=== PATIENT | male | born 1955 | race African-American/Black ===

== ENCOUNTER 2016-11-19 08:05 | Day surgery (SDC) | payer OTHER ==
[2016-11-16 12:02] VITALS: BMI 32.4
[~2016-11-19 08:05] MED LIST: LIDOCAINE 1% 20 ML VIAL (10MG/ML) FOR IV START INTRADERMA PRN
[2016-11-19 08:26] VITALS: TEMP 97.7
[2016-11-19] MEDS: LACTATED RINGERS 1,000 ML IV SCH ×2 (08:38→09:20)
[2016-11-19 08:53] LABS: Glucose,Whole Blood 118 mg/dL (75-99)
[2016-11-19] MEDS ORDERED: LIDOCAINE 1% INJ 10MG/ML (20 ML MDV) ONE (09:22)
[2016-11-19] MEDS ORDERED: PROPOFOL 10 MG/ML 20 ML VIAL IV ONE (09:22)
--- NOTE | 2016-11-19 10:03 | P.PCN ---
Date of Procedure: 11/19/16 Preoperative Diagnosis: Postoperative Diagnosis: Procedure(s) Performed: Procedure: Esophagogastroduodenoscopy and biopsy and esophageal dilation using the Microvasive lyxpfhh-fey-ljzym balloon dilator size 15-18 mm. Preoperative diagnosis: History of dysphagia including episodes of obstructive dysphagia with requirement of endoscopic intervention back in December 2015. Postoperative diagnosis: 1. Benign appearing esophageal stricture dilated to 18 mm using the Microvasive xuarwzz-wlk-atkhy balloon dilator size 15-18 mm. 2. Hiatal hernia. 3. Mild gastritis. Preparation and sedation: Was provided by anesthesia. Brief clinical history: The patient is a 61-year-old male who I have recently evaluated in the office and scheduled for this exam. The patient has had issues with dysphagia for the last 5 years, including episodes of obstruction that would either spontaneously resolve or would resolve after receiving glucagon in the hospital. His episode in December of last year required endoscopic intervention where I removed the impacted piece of meat using the snare. The patient continues to have issues and, therefore, I scheduled this evaluation for dilation and biopsies. Procedure: With the patient on his left lateral decubitus position and after informed consent and adequate sedation, I passed the Olympus-GIF 160 video upper endoscope through the cricopharyngeus down the esophagus. GE junction was around 42-43 cm from the incisors and there was a sliding hiatal hernia measuring around 2 cm. At the level of the GE junction there was a benign stricture that allows the advancement of the endoscope. The esophagus, otherwise, did not show any obvious abnormalities. The endoscope was then passed into the stomach which was insufflated with air and inspected in detail including the retroflex view in the cardia. There was some mottling and erythema in the antrum but no ulcers or erosions. Pyloric channel did not show any ulcers. Duodenal bulb, post bulbar area and descending duodenum appeared within normal limits. Because of his symptoms, I obtained biopsies from the duodenum and antrum then I proceeded to dilate the esophagus, and I concluded the exam by obtaining biopsies from the esophagus. The esophagus was dilated using the Microvasive xgykacv-mqt-betff balloon dilator 15-18 mm which was advanced through the operating channel of the endoscope and centered at the level of the stricture and inflated in a stepwise fashion. The patient had no immediate complications. Plan: The patient was reassured. Will await biopsy results. He will be on liquid diet today and then he can advance his diet as tolerated. Further plans will be made based on his course. He will follow up with you as planned. Implants: Indications for Procedure: Operative Findings: Description of Procedure:
[2016-11-19 10:15] VITALS: BP 126/72; PULSE 69; RESP 18
[2016-11-19 10:23] LABS: Glucose,Whole Blood 116 mg/dL (75-99)
== END 2016-11-19 10:37 | disposition home or self-care (01) ==
LOC: ORWHC2ENDO 08:05
DX: K22.2 Esophageal obstruction (principal); K29.50 Unspecified chronic gastritis without bleeding; K20.9 Esophagitis, unspecified; K44.9 Diaphragmatic hernia without obstruction or gangrene; E11.9 Type 2 diabetes mellitus without complications; I10 Essential (primary) hypertension; E78.5 Hyperlipidemia, unspecified; Z79.84 Long term (current) use of oral hypoglycemic drugs; Z79.1 Long term (current) use of non-steroidal anti-inflammatories (NSAID); Z79.899 Other long term (current) drug therapy
CPT/HCPCS: 88305; 88342; 43239; 43249; J2001; J2704; C1726

== ENCOUNTER 2017-04-05 14:06 | Emergency (ER) | payer BC, OTHER ==
[2017-04-05] MEDS ORDERED: SODIUM CHLORIDE 0.9% 1,000 ML IV ONE (15:06)
[2017-04-05] MEDS ORDERED: PROMETHAZ-COD 6.25-10 MG/5 ML 5 ML CUP PO STA (15:06)
[2017-04-05 15:42] LABS: Basophils % (A) 1 %; Eosinophils # (A) 0.2 k/uL (0-0.7); Eosinophils % (A) 3 %; HCT 46.2 % (39.0-53.0); HGB 15.1 gm/dL (13.0-17.5); Lymphocytes # (A) 1.8 k/uL (1.0-4.8); Lymphocytes % (A) 26 %; MCH 28.7 pg (25.0-35.0); MCHC 32.8 g/dL (31.0-37.0); MCV 87.6 fL (80.0-100.0); Monocytes # (A) 0.4 k/uL (0-1.0); Monocytes % (A) 6 %; Neutrophils # (A) 4.1 k/uL (1.3-7.7); Neutrophils % (A) 62 %; Platelet Count 209 k/uL (150-450); RBC 5.28 m/uL (4.30-5.90); RDW 14.5 % (11.5-15.5); WBC 6.7 k/uL (3.8-10.6)
--- NOTE | 2017-04-05 15:44 | XR ---
EXAMINATION TYPE: XR chest 2V DATE OF EXAM: 04/05/2017 COMPARISON: 12/30/2015 HISTORY: Cough and shortness of breath for one week TECHNIQUE: Frontal and lateral views of the chest are obtained. FINDINGS: There is no focal air space opacity, pleural effusion, or pneumothorax seen. The cardiac silhouette size is within normal limits. The osseous structures are intact. Cholecystectomy clip is noted within the right upper quadrant. IMPRESSION: No acute cardiopulmonary process.
[2017-04-05 15:52] LABS: Anion Gap 10 mmol/L; Blood Urea Nitrogen 12 mg/dL (9-20); Calcium 9.8 mg/dL (8.4-10.2); Carbon Dioxide 27 mmol/L (22-30); Chloride 102 mmol/L (98-107); Glucose 176 mg/dL (74-99); Potassium 4.3 mmol/L (3.5-5.1); Sodium 139 mmol/L (137-145)
--- NOTE | 2017-04-05 15:58 | ED ---
Recheck HPI - General Chief Complaint: Recheck/Abnormal Lab/Rx Stated Complaint: Sugar at 271 Time Seen by Provider: 04/05/17 14:55 Source: patient, RN notes reviewed, old records reviewed Mode of arrival: ambulatory Limitations: no limitations - History of Present Illness Initial Comments: This is a 61-year-old male with history of diabetes presents with upper respiratory congestion, cough, and chest discomfort for the past week. Patient reports he is concerning his blood sugars an elevated around 350-400 throughout the past week. Patient reports that he manages his diabetes with oral medications. He denies any fever or recent chills. He reports his cough has been nonproductive. He reports chest discomfort with cough. - Related Data Home Medications Medication Instructions Recorded Confirmed Atorvastatin [Lipitor] 20 mg PO W/SUPPER 12/30/15 04/05/17 Glimepiride [Amaryl] 2 mg PO W/SUPPER 12/30/15 04/05/17 Metoprolol Tartrate [Lopressor] 25 mg PO W/SUPPER 12/30/15 04/05/17 metFORMIN HCL 1,000 mg PO BID 12/30/15 04/05/17 Previous Rx's Medication Instructions Recorded Albuterol Inhaler [Ventolin Hfa 1 - 2 puff INHALATION Q6HR PRN #1 04/05/17 Inhaler] inhaler Azithromycin [Zithromax Z-pack] 250 mg PO DIRECTED #6 tab 04/05/17 Promethazine/Dextromethorphan 5 ml PO QID #120 ml 04/05/17 [Phenergan DM Syrup] Allergies Allergy/AdvReac Type Severity Reaction Status Date / Time No Known Allergies Allergy Verified 04/05/17 16:33 Review of Systems ROS Statement: Those systems with pertinent positive or pertinent negative responses have been documented in the HPI. ROS Other: All systems not noted in ROS Statement are negative. Past Medical History Past Medical History: Diabetes Mellitus, Hypertension Additional Past Medical History / Comment(s): STATES HAVING TROUBLE SWALLOWING- FOOD GETS STUCK. 11/20/16 BACTERIA INFECTION RT EYE History of Any Multi-Drug Resistant Organisms: None Reported Past Surgical History: Back Surgery, Cholecystectomy, Orthopedic Surgery Additional Past Surgical History / Comment(s): LEFT KNEE SURGERY X3. Past Anesthesia/Blood Transfusion Reactions: No Reported Reaction Past Psychological History: No Psychological Hx Reported Smoking Status: Never smoker Past Alcohol Use History: Occasional Past Drug Use History: None Reported - Past Family History Mother Family Medical History: No Reported History General Exam - General Exam Comments Initial Comments: This is a 61-year-old male. No distress. Limitations: no limitations General appearance: alert, in no apparent distress Head exam: Present: atraumatic, normocephalic, normal inspection Eye exam: Present: normal appearance, PERRL, EOMI. Absent: scleral icterus, conjunctival injection, periorbital swelling ENT exam: Present: normal exam, mucous membranes moist Neck exam: Present: normal inspection. Absent: tenderness, meningismus, lymphadenopathy Respiratory exam: Present: normal lung sounds bilaterally. Absent: respiratory distress, wheezes, rales, rhonchi, stridor Cardiovascular Exam: Present: regular rate, normal rhythm, normal heart sounds. Absent: systolic murmur, diastolic murmur, rubs, gallop, clicks GI/Abdominal exam: Present: soft, normal bowel sounds. Absent: distended, tenderness, guarding, rebound, rigid Extremities exam: Present: normal inspection, full ROM, normal capillary refill. Absent: tenderness, pedal edema, joint swelling, calf tenderness Back exam: Present: normal inspection Course Vital Signs 04/05/17 04/05/17 04/05/17 14:12 16:15 17:22 Temperature 98.8 F 98.4 F 98.9 F Pulse Rate 94 82 84 Respiratory 20 18 18 Rate Blood Pressure 133/73 123/69 130/74 O2 Sat by Pulse 98 98 100 Oximetry Medical Decision Making - Medical Decision Making This is a 61-year-old male with history of diabetes presents with upper respiratory congestion, cough, and chest discomfort for the past week. Patient reports he is concerning his blood sugars an elevated around 350-400 throughout the past week. Patient reports that he manages his diabetes with oral medications. Patient lungs are clear, patient is afebrile. Patient has no other significant ocmplaints. Patient lab work reviewed, BG was within normal limits. No significant abonralities noted. EKG reviwed and normal. CXR shows no pneumonia. At this time I will treat patient for bronchitis with inhaler and azithromycin. Disucssed steroids will increase BG. Discussed follow up with PCP and return parameters discussed. - Lab Data Result diagrams: 04/05/17 15:23 04/05/17 15:23 Lab Results 04/05/17 04/05/17 04/05/17 Range/Units 15:23 15:23 15:23 WBC 6.7 (3.8-10.6) k/uL RBC 5.28 (4.30-5.90) m/uL Hgb 15.1 (13.0-17.5) gm/dL Hct 46.2 (39.0-53.0) % MCV 87.6 (80.0-100.0) fL MCH 28.7 (25.0-35.0) pg MCHC 32.8 (31.0-37.0) g/dL RDW 14.5 (11.5-15.5) % Plt Count 209 (150-450) k/uL Neutrophils % 62 % Lymphocytes % 26 % Monocytes % 6 % Eosinophils % 3 % Basophils % 1 % Neutrophils # 4.1 (1.3-7.7) k/uL Lymphocytes # 1.8 (1.0-4.8) k/uL Monocytes # 0.4 (0-1.0) k/uL Eosinophils # 0.2 (0-0.7) k/uL Basophils # 0.0 (0-0.2) k/uL Sodium 139 (137-145) mmol/L Potassium 4.3 (3.5-5.1) mmol/L Chloride 102 (98-107) mmol/L Carbon Dioxide 27 (22-30) mmol/L Anion Gap 10 mmol/L BUN 12 (9-20) mg/dL Creatinine 0.96 (0.66-1.25) mg/dL Est GFR (MDRD) Af Amer >60 (>60 ml/min/1.73 sqM) Est GFR (MDRD) Non-Af >60 (>60 ml/min/1.73 sqM) Glucose 176 H (74-99) mg/dL Calcium 9.8 (8.4-10.2) mg/dL Troponin I <0.012 (0.000-0.034) ng/mL Urine Color Urine Appearance (Clear) Urine pH (5.0-8.0) Ur Specific [place] (1.001-1.035) Urine Protein (Negative) Urine Glucose (UA) (Negative) Urine Ketones (Negative) Urine Blood (Negative) Urine Nitrite (Negative) Urine Bilirubin (Negative) Urine Urobilinogen (<2.0) mg/dL Ur Leukocyte Esterase (Negative) Urine RBC (0-5) /hpf Urine WBC (0-5) /hpf Ur Squamous Epith Cells (0-4) /hpf Urine Mucus (None) /hpf Acetone, Qual Negative (Negative) 04/05/17 Range/Units 15:59 WBC (3.8-10.6) k/uL RBC (4.30-5.90) m/uL Hgb (13.0-17.5) gm/dL Hct (39.0-53.0) % MCV (80.0-100.0) fL MCH (25.0-35.0) pg MCHC (31.0-37.0) g/dL RDW (11.5-15.5) % Plt Count (150-450) k/uL Neutrophils % % Lymphocytes % % Monocytes % % Eosinophils % % Basophils % % Neutrophils # (1.3-7.7) k/uL Lymphocytes # (1.0-4.8) k/uL Monocytes # (0-1.0) k/uL Eosinophils # (0-0.7) k/uL Basophils # (0-0.2) k/uL Sodium (137-145) mmol/L Potassium (3.5-5.1) mmol/L Chloride (98-107) mmol/L Carbon Dioxide (22-30) mmol/L Anion Gap mmol/L BUN (9-20) mg/dL Creatinine (0.66-1.25) mg/dL Est GFR (MDRD) Af Amer (>60 ml/min/1.73 sqM) Est GFR (MDRD) Non-Af (>60 ml/min/1.73 sqM) Glucose (74-99) mg/dL Calcium (8.4-10.2) mg/dL Troponin I (0.000-0.034) ng/mL Urine Color Yellow Urine Appearance Clear (Clear) Urine pH 5.0 (5.0-8.0) Ur Specific [place] 1.018 (1.001-1.035) Urine Protein Trace H (Negative) Urine Glucose (UA) Trace H (Negative) Urine Ketones Negative (Negative) Urine Blood Trace H (Negative) Urine Nitrite Negative (Negative) Urine Bilirubin Negative (Negative) Urine Urobilinogen <2.0 (<2.0) mg/dL Ur Leukocyte Esterase Negative (Negative) Urine RBC 1 (0-5) /hpf Urine WBC 3 (0-5) /hpf Ur Squamous Epith Cells <1 (0-4) /hpf Urine Mucus Rare H (None) /hpf Acetone, Qual (Negative) 04/05/17 17:15 EKG shows normal sinus rhythm, incomplete right bundle branch block. Moderate voltage criteria for LVH. And sugar rate of 81 bpm period. Interval 132 ms. QRS ration 100 ms. QT QTc is 364/422 ms. Noticed this elevation or T-wave inversion. No evidence of a trailer ventricular arrhythmias. - Radiology Data Radiology results: report reviewed CXR reviewed and normal. Disposition Clinical Impression: Upper respiratory infection, Bronchitis Disposition: HOME SELF-CARE Condition: Good Instructions: Acute Bronchitis (ED), Managing Diabetes During Sick Days (ED) Additional Instructions: Advised to follow-up with primary care provider. Monitor blood sugars. Recommended increasing her fluid intake. Return to emergency department if any alarming signs or symptoms occur. Prescriptions: Albuterol Inhaler [Ventolin Hfa Inhaler] 1 - 2 puff INHALATION Q6HR PRN #1 inhaler PRN Reason: Pain Azithromycin [Zithromax Z-pack] 250 mg PO DIRECTED #6 tab Promethazine/Dextromethorphan [Phenergan DM Syrup] 5 ml PO QID #120 ml Referrals: Kyree Cruz Jr, DO [Primary Care Provider] - 1-2 days Time of Disposition: 17:03
[2017-04-05 16:10] LABS: Appearance,Urine Clear (Clear); Bilirubin,Urine Negative (Negative); Blood,Urine Trace (Negative); Color,Urine Yellow; Glucose,Urine (UA) Trace (Negative); Ketones,Urine Negative (Negative); Leukocyte Esterase,Urine Negative (Negative); Mucus,Urine Rare /hpf; Nitrite,Urine Negative (Negative); Protein,Urine Trace (Negative); RBC,Urine 1 /hpf (0-5); Specific Gravity,Urine 1.018 (1.001-1.035); Squamous Epithelial Cell,Urine <1 /hpf (0-4); Urobilinogen,Urine <2.0 mg/dL (<2.0); WBC,Urine 3 /hpf (0-5)
[2017-04-05 16:16] VITALS: RESP 18
[2017-04-05] MEDS ORDERED: methylPREDNISolone SOD SUCCI 125 MG/2 ML VIAL IV STA (17:08)
[2017-04-05 17:25] VITALS: BP 130/74; PULSE 84; TEMP 98.9
== END 2017-04-05 17:22 | disposition home or self-care (01) ==
LOC: EC 14:06
DX: J40 Bronchitis, not specified as acute or chronic (principal); J06.9 Acute upper respiratory infection, unspecified; I10 Essential (primary) hypertension; E11.9 Type 2 diabetes mellitus without complications; Z79.84 Long term (current) use of oral hypoglycemic drugs; Z79.899 Other long term (current) drug therapy
CPT/HCPCS: 99284; 96374; 96361 ×2; 36415; 93005; 80048; 82009; 84484; 85025; 81001; 71046; J2930

== ENCOUNTER → 2019-03-09 | Outpatient (CLI) | payer BC ==
[2019-03-09 07:53] LABS: HGB 14.4 gm/dL (13.0-17.5); MCH 30.7 pg (25.0-35.0); MCV 95.9 fL (80.0-100.0); Mean Platelet Volume 8.2; Platelet Count 218 k/uL (150-450); RBC 4.69 m/uL (4.30-5.90); RDW 13.8 % (11.5-15.5); WBC 5.5 k/uL (3.8-10.6)
[2019-03-09 08:03] LABS: Appearance,Urine Clear (Clear); Bilirubin,Urine Negative (Negative); Blood,Urine Negative (Negative); Calcium 9.5 mg/dL (8.4-10.2); Color,Urine Light Yellow; Glucose,Urine (UA) 4+ (Negative); Ketones,Urine Negative (Negative); Leukocyte Esterase,Urine Negative (Negative); Nitrite,Urine Negative (Negative); Potassium 4.4 mmol/L (3.5-5.1); Protein,Urine Negative (Negative); Specific Gravity,Urine 1.031 (1.001-1.035); Total Bilirubin 0.6 mg/dL (0.2-1.3); Total Protein 6.8 g/dL (6.3-8.2); Urobilinogen,Urine <2.0 mg/dL (<2.0)
[2019-03-09 08:06] LABS: INR 0.9 (<1.2); Partial Thromboplastin Time 24.6 sec (22.0-30.0); Prothrombin Time 9.7 sec (9.0-12.0)
== END | disposition home or self-care (01) ==
LOC: LABPAT 06:51
PROVIDERS: ATTEND Orthopaedic Surgery Sports Medicine
DX: Z01.810 Encounter for preprocedural cardiovascular examination (principal); Z01.812 Encounter for preprocedural laboratory examination
CPT/HCPCS: 36415; 80053; 81003; 85027; 85610; 85730; 87070; 93005

== ENCOUNTER → 2019-03-31 | Outpatient (CLI) | payer BC ==
[2019-03-31 07:21] LABS: Appearance,Urine Clear (Clear); Bilirubin,Urine Negative (Negative); Blood,Urine Negative (Negative); Color,Urine Yellow; Glucose,Urine (UA) 4+ (Negative); HCT 47.5 % (39.0-53.0); HGB 15.3 gm/dL (13.0-17.5); Ketones,Urine Negative (Negative); Leukocyte Esterase,Urine Negative (Negative); MCHC 32.3 g/dL (31.0-37.0); Mean Platelet Volume 8.3; Nitrite,Urine Negative (Negative); Platelet Count 239 k/uL (150-450); Protein,Urine Negative (Negative); RBC 4.94 m/uL (4.30-5.90); RDW 13.7 % (11.5-15.5); Specific Gravity,Urine 1.028 (1.001-1.035); Urobilinogen,Urine <2.0 mg/dL (<2.0); WBC 6.5 k/uL (3.8-10.6)
[2019-03-31 07:30] LABS: INR 0.9 (<1.2); Partial Thromboplastin Time 24.2 sec (22.0-30.0)
[2019-03-31 07:42] LABS: Calcium 9.7 mg/dL (8.4-10.2); Potassium 4.3 mmol/L (3.5-5.1); Total Bilirubin 0.9 mg/dL (0.2-1.3)
== END | disposition home or self-care (01) ==
LOC: LABPAT 06:34
PROVIDERS: ATTEND Orthopaedic Surgery Sports Medicine
DX: Z01.812 Encounter for preprocedural laboratory examination (principal)
CPT/HCPCS: 80053; 81003; 85027; 85610; 85730

== ENCOUNTER 2019-04-26 10:37 | Day surgery (SDC) | payer BC ==
[2019-04-18 11:23] VITALS: BMI 33.0
[~2019-04-26 10:37] MED LIST changes: +ACETAMINOPHEN TAB 500 MG TAB PO ONE; +DEXAMETHASONE SOD PHOSPHATE 10 MG/ML 1 ML VIAL IV ONE; +GABAPENTIN 300 MG CAP PO ONE; +MELOXICAM 7.5 MG TAB PO ONE; +MIDAZOLAM 2 MG/2 ML VIAL IV PRN; +ONDANSETRON 4 MG/2 ML VIAL IVP ONE; +TRANEXAMIC ACID 1,000 MG in SODIUM CHLORIDE 0.9% 100 ML IVPB ONE; +fentaNYL (PF) 50 MCG/ML 2 ML AMP IVP PRN
[2019-04-26 11:47] VITALS: RESP 16
[2019-04-26] MEDS: LACTATED RINGERS 1,000 ML IV SCH ×2 (11:49→15:49)
[2019-04-26 11:51] LABS: Glucose,Whole Blood 81 mg/dL (75-99)
[2019-04-26] MEDS ORDERED: ACETAMINOPHEN TAB 325 MG TAB PO PRN (12:17)
[2019-04-26] MEDS ORDERED: HYDROcodone/APAP 10-325MG 1 EACH TAB PO PRN (12:17)
[2019-04-26] MEDS ORDERED: HYDROmorphone 0.5 MG/0.5 ML SYRINGE IVP PRN ×2 (12:17)
[2019-04-26] MEDS ORDERED: NALOXONE 0.4 MG/ML 1 ML VIAL IV PRN (12:17)
[2019-04-26] MEDS ORDERED: traMADol 50 MG TAB PO PRN (12:17)
[2019-04-26] MEDS ORDERED: BISACODYL 10 MG SUPP RECTAL PRN (12:17)
[2019-04-26] MEDS ORDERED: NA PHOS,M-B/NA PHOS,DI-BA 133 ML ENEMA RECTAL PRN (12:17)
[2019-04-26] MEDS ORDERED: DIAZEPAM 5 MG TAB PO PRN (12:17)
[2019-04-26] MEDS ORDERED: MAGNESIUM HYDROXIDE 2,400 MG/10 ML CUP PO PRN (12:17)
[2019-04-26] MEDS ORDERED: TEMAZEPAM 15 MG CAP PO PRN (12:17)
[2019-04-26] MEDS ORDERED: ONDANSETRON 4 MG/2 ML VIAL IVP PRN (12:17)
[2019-04-26] MEDS ORDERED: HYDROmorphone 1 MG/ML 1 ML SYRINGE IVP PRN (12:17)
[2019-04-26] MEDS ORDERED: LIDOCAINE 1% INJ 10MG/ML (20 ML MDV) ONE (12:26)
[2019-04-26] MEDS ORDERED: PROPOFOL 10 MG/ML 20 ML VIAL IV ONE (12:26)
[2019-04-26] MEDS ORDERED: TRANEXAMIC ACID 1,000 MG/10 ML VIAL ONE (12:26)
[2019-04-26] MEDS ORDERED: SODIUM CHLORIDE 0.9% 100 ML BAG ONE (12:26)
[2019-04-26] MEDS ORDERED: MIDAZOLAM 2 MG/2 ML VIAL ONE (12:26)
[2019-04-26] MEDS ORDERED: fentaNYL (PF) 50 MCG/ML 2 ML AMP ONE (12:26)
[2019-04-26] MEDS ORDERED: KETAMINE 10 MG/ML 20 ML VIAL ONE (12:26)
[2019-04-26] MEDS ORDERED: ePHEDrine SULFATE/0.9% NACL/PF 50 MG/5 ML SYRINGE IV ONE (12:26)
[2019-04-26] MEDS ORDERED: diphenhydrAMINE 50 MG/ML 1 ML VIAL ONE (12:26)
[2019-04-26] MEDS ORDERED: ceFAZolin 3,000 MG in SODIUM CHLORIDE 0.9% IRRIGATIO 3,000 ML IRRIGATION ONE (13:00)
[2019-04-26] MEDS: ROPIVACAINE 246.25 MG, EPINEPHrine 0.5 MG, KETOROLAC 30 MG, cloNIDine HCL/PF 80 MCG, WA... MISCELLANE ONE ×10 (13:00→14:07)
[2019-04-26] MEDS ORDERED: LACTATED RINGERS 1,000 ML IV ONE (13:18)
[2019-04-26] MEDS ORDERED: ROPIVACAINE 0.2%-NS ON-Q PUMP 1,090 MG, EMPTY PAIN BALL 1 EACH MISCELLANE PRN (14:10)
--- NOTE | 2019-04-26 14:13 | P.ANPRN ---
Procedure Note - Anesthesia - Nerve Block Performed Left Adductor Canal Infusion Time Out Performed: Yes Date of Procedure: 04/26/19 Procedure Start Time: 12:01 Procedure Stop Time: 12:14 Location of Patient: PreOp Indication: Acute Post-Operative Pain, Requested by Surgeon Sedation Type: Sedate with meaningful contact maintained Preparation: Sterile Prep, Sterile Dressing Position: Supine Catheter: Indwelling Needle Types: Pajunk Needle Gauge: 21 Ultrasound used to visualize needle placement: Yes Ultrasound used to observe medication spread: Yes Blood Aspirated: No Pain Paresthesia on Injection Noted: No Resistance on Injection: Normal Image Stored and Saved: Yes Events: Uneventful and Well Tolerated (ropi .5% 20cc plus dexamethasone 4mg)
--- NOTE | 2019-04-26 15:20 | XR ---
Left knee HISTORY: Status post left knee arthroplasty 2 views of the left knee Patient is status post left knee arthroplasty. There is anatomic alignment. Lucency is present within the soft tissues. Calcifications within the soft tissues show nonaggressive appearance. IMPRESSION: Orthopedic follow-up.
[2019-04-26 15:23] LABS: Glucose,Whole Blood 90 mg/dL (75-99)
[2019-04-26] MEDS: HYDROmorphone 0.5 MG/0.5 ML SYRINGE IVP PRN ×2 (15:26→15:46)
--- NOTE | 2019-04-26 16:04 | OP ---
OPERATIVE REPORT DATE OF PROCEDURE: 04/26/2019 SURGEON: Bebeto Mota MD EXPLORATION GEOLOGIST: Carlitos Bojorquez PA-C PREOPERATIVE DIAGNOSIS: Left knee osteoarthrosis. POSTOPERATIVE DIAGNOSIS: Left knee osteoarthrosis. OPERATION: Left total knee arthroplasty. ANESTHESIA: Spinal with sedation. ESTIMATED BLOOD LOSS: 100 mL. TOURNIQUET: Tourniquet time was 72 minutes at 250 mmHg. COMPLICATIONS: None apparent. DRAINS: None. DISPOSITION: Post-Anesthesia Care Unit. INDICATIONS: Suhas is a 63-year-old male with a longstanding history of left knee pain. History and physical examination are consistent with advanced left knee osteoarthrosis. He has been through significant nonoperative management up to this point. Further treatment options were discussed. He decided to go forward with left total knee arthroplasty. The risks of the procedure were discussed with him in detail. These risks include but are not limited to risk of infection, nerve damage, bleeding, pain, and a small risk of deep vein thrombosis which could lead to fatal pulmonary embolism. There is also a risk of loosening of the implant which could require revision operation. The patient understands these risks. All of his questions were answered to his satisfaction. Appropriate informed consent was obtained. DESCRIPTION OF PROCEDURE: The patient was identified in the preoperative holding area. Surgical site was marked by both the patient and myself. He was given 2 grams of Ancef IV for prophylactic purposes. He was then transferred to the operative suite. He was placed supine on the operating room table. Spinal anesthetic was then administered and dosed per the anesthesia department without apparent complication. Examination under anesthesia was then performed. The patient was 5 degrees shy of full extension. He had 95 degrees of flexion, and the medial collateral ligament, lateral collateral ligament and posterior cruciate ligaments were stable. The tourniquet was then placed high on the left upper thigh, well padded in preparation for surgery. The patient's left lower extremity was then prepped and draped in the usual sterile fashion. A standard surgical pause was then undertaken to ensure that we were operating on the correct site and that appropriate preoperative antibiotics had been given. All staff in the room were in agreement and we proceeded. The outlines of the patella were marked with a surgical pen. A planned 12 cm vertical incision centered over the patella was marked with a surgical pen. He did have a previous arthrotomy incision. We did incorporate the medial arthrotomy incision into the incision for the case. The leg was then exsanguinated with an Esmarch dressing. The knee was flexed and the tourniquet was inflated to 250 mmHg. Total tourniquet time for this procedure was 72 minutes. Incision was then made with a 10-blade scalpel. Dissection was carried down sharply to the overlying fascia. Great care was taken to minimize the skin flaps. The knee was then exposed using a standard medial parapatellar approach. A small cuff of quadriceps tendon was then left for suturing. He was in a bit of valgus preoperatively. A very minimal medial release was then made. The superficial medial collateral ligament was dissected off the bone around to the posterior aspect of the proximal tibia. This was done just enough to place the medial retractor. The medial meniscus was then excised as well. The lateral meniscus was also released anteriorly. The leg was then externally rotated. The patella was everted and the knee was flexed. The retractors were then placed to protect the collateral ligaments. I then proceeded to remove the infrapatellar fat pad. This was excised sharply tangentially with the fibers of the patellar tendon. I then proceeded to remove the peripheral osteophytes. This was done with a rongeur. I then proceeded with the distal femoral resection. He did have a flexion contracture, and extra 2 mm resection was planned for. This would be an 11 mm resection in total. The femoral canal was then entered in the midline of the femur approximately 10 mm anterior to the origin of the posterior cruciate ligament. The meghan was then advanced down to the center of the femur and placed intramedullary. Based on the preoperative radiographs, the angle between the anatomic and mechanical axes of the femur was approximately 4 to 5 degrees. The valgus angle of the distal femoral cutting guide was then set at 4 degrees for the left knee. Distal femoral cutting guide was then advanced over the intramedullary meghan. This was seated firmly against the femur. I then, as mentioned, planned to take 11 mm off the distal femur. The cutting block was then secured onto the femur with pins. The jig was removed and the distal femoral cut was made through the slot of the block. The pins were then removed. The distal femoral cutting block was removed. The accuracy of the distal femoral cuts was checked with 2 flat bars. I then proceeded with femoral sizing. The posterior referencing sizing guide was held firmly against the resected distal surface of the femur. The posterior condyles were resting on the posterior plane of the guide. The sizing stylus was then placed onto the anterior femur. The size was measured as a size 9. I then assessed for femoral rotation. The plan was for 3 degrees of external rotation. Three degrees of external rotation was placed onto the jig. These holes were then marked. I then confirmed the rotation by 3 separate methods. This was done using epicondylar axis as well as Whitesides line and posterior referencing. It was deemed that the external rotation was proper. I then went forward with placing the femoral cutting block. This was placed over the previously placed pin holes. The Ernesto wing was then placed onto the anterior slots to ensure that we would not notch the anterior femur with the anterior femoral cut. I then proceeded with the anterior femoral cut. This was flush with the anterior cortex of the femur. Posterior cuts were then made followed by the anterior chamfer cut and then the posterior chamfer cut. The cutting block was then removed. Throughout the resection, the collateral ligaments were protected with retractors. I then placed a trial size 9 femur. It fit very nicely medial to lateral and fit flush with the distal end of the femur. The drill holes were then made. I then proceeded with the tibial cut. I planned for a cruciate-retaining knee. The guide was set and placed for varus, valgus and for slope. The height was set for an approximate 2 mm resection from the lateral tibial plateau, which was the lower side. I was happy with the alignment and the amount of resection. Cutting block was then pinned to the proximal tibia. The alignment meghan was removed and the proximal tibia was resected with a reciprocating saw. Again this was done with retractors protecting the collateral ligaments as well as the posterior cruciate ligament. I then proceeded to evaluate the flexion and extension gaps. A 10 mm block was then placed. The flexion and extension gaps were equal. I then proceeded with resection of the posterior osteophytes. He had very extensive posterior osteophytes. This was done using a curved osteotome. This resected the posterior osteophytes, and posterior capsule stripping was done off the posterior aspect of the femur at this time. The osteophytes were then removed. I then proceeded with resection of the patella. The thickness of the patella was measured using the caliper. The thickness was 26 mm. Thickness of the anticipated patellar dome was taken into account. Resection was then performed and confirmed to be equal in 4 quadrants using a caliper. Approximately 14 mm of bone remained after the resection. A 38 x 9 standard patellar trial was then placed. The holes were drilled and the trial was then placed. I then proceeded with sizing the tibial plate. A size H tibial plate fit very nicely. I then placed the trial femur, the tibial tray and the patellar button. A 10 mm trial insert was also placed. The components fit very nicely. He had full extension and flexion. The extension and flexion gaps were equal and stable to both varus and valgus stress. The patella tracked appropriately. The tibial tray rotation was then marked with a Bovie. This was externally rotated properly. I then proceeded with tibial preparation. I first drilled the femoral holes and removed the femoral component. The tibial tray was then set for proper external rotation as well as mediolateral placement onto the tibia. It was then pinned into place. I then proceeded with punching the keel. I then decided to proceed with cementing of all of our components. The knee was thoroughly irrigated with sterile saline solution via pulse lavage. The lateral geniculate artery was identified and cauterized. All blood was removed from the bone of the tibia, femur and patella with pulse lavage. I then proceeded with cementing. Two packs of antibiotic bone cement were prepared on the back table by the nursing surgical services director. I then proceeded with cementing of the tibia first. The cement was impacted into the keel as well as deeply seated into the bone. A second coat of cement was then placed. The tibia was then impacted into place. Excess cement was removed with Ira's and Joker's. I then proceeded with cementing of the femoral component. The femoral component was also cemented using standard technique. Excess cement was removed. A 10 mm trial insert was then placed into the knee. It was brought into full extension with a constant axial load placed until the cement had hardened. The patellar component was then cemented. This was held firmly with a compressive device until the cement had dried. When the cement had dried, the knee was taken out of extension. All excess cement was removed from around the prosthesis. I then trialed the knee with a 10 mm insert. Flexion and extension gaps were appropriate. The knee was stable. It came into full extension. I decided to go forward with a 10 mm cross-linked cruciate-retaining tibial insert. Polyethylene was then placed onto the tibial tray and locked into place. The knee was then reduced. The knee was again further irrigated with sterile saline solution with antibiotic added. The tourniquet was then deflated. The total tourniquet time for the procedure was 72 minutes at 250 mmHg. Final components were a [place] size 9 cruciate-retaining femoral component, a size H tibial tray, a 10 mm medial-congruent cruciate-retaining polyethylene insert, and a 38 x 9 mm patella. I then proceeded with closure. Again the knee was thoroughly irrigated. The quadriceps tendon and the medial retinaculum were reapproximated with a #2 Ethibond suture. The extensor mechanism was then closed with a running #2 Quill suture. Subcutaneous tissues were then closed with 2-0 Vicryl interrupted suture. The skin was closed with a running 3-0 Quill suture. Dermabond was applied to the incision. Sterile compressive dressing was then applied. All sponge and needle counts were deemed correct prior to closure. The patient tolerated the procedure without apparent complication. He was transferred to the recovery room in stable condition. MMODL / IJN: [id number] /
[2019-04-26 17:13] LABS: Glucose,Whole Blood 127 mg/dL (75-99)
[2019-04-26 20:30] LABS: Glucose,Whole Blood 169 mg/dL (75-99)
[2019-04-26] MEDS: ASPIRIN 325 MG TAB PO SCH (20:58)
[2019-04-26] MEDS: metFORMIN 500 MG TAB PO SCH (20:59)
[2019-04-26] MEDS ORDERED: EMPAGLIFLOZIN PO SCH (21:00)
[2019-04-26] MEDS ORDERED: LOSARTAN 25 MG TAB PO SCH (21:00)
[2019-04-26] MEDS ORDERED: SENNOSIDES-DOCUSATE SODIUM 1 EACH TAB PO SCH (21:00)
[2019-04-26] MEDS ORDERED: METOPROLOL TARTRATE 25 MG TAB PO SCH (21:00)
[2019-04-26] MEDS ORDERED: PIOGLITAZONE 30 MG TAB PO SCH (21:00)
[2019-04-26] MEDS ORDERED: LINAGLIPTIN PO SCH (21:00)
[2019-04-26] MEDS ORDERED: ATORVASTATIN 20 MG TAB PO SCH (21:00)
[2019-04-26] MEDS: HYDROcodone/APAP 5-325MG 1 EACH TAB PO PRN (21:08)
[2019-04-27] MEDS: LACTATED RINGERS 1,000 ML IV SCH ×3 (01:11→07:21)
--- NOTE | 2019-04-27 07:18 | P.PN ---
Progress Note - Text Progress Note Date: 04/27/19 Postoperative day # 1 status post total knee arthroplasty, under spinal anesthesia, and adductor canal catheter placed for postoperative analgesia, currently at ropivacaine 0.2% 8 mL per hour and continuous infusion, visual analogue scale is 0/10. Assessment and plan= Acute postoperative pain, adductor canal catheter for pain control, pain is well controlled we'll continue the same management.
[2019-04-27 07:21] LABS: Glucose,Whole Blood 154 mg/dL (75-99)
[2019-04-27 08:07] LABS: Basophils # (A) 0.1 k/uL (0-0.2); Basophils % (A) 1 %; Eosinophils % (A) 0 %; HCT 42.9 % (39.0-53.0); HGB 13.5 gm/dL (13.0-17.5); Lymphocytes % (A) 10 %; MCHC 31.5 g/dL (31.0-37.0); MCV 95.3 fL (80.0-100.0); Mean Platelet Volume 8.1; Monocytes # (A) 0.4 k/uL (0-1.0); Monocytes % (A) 5 %; Neutrophils # (A) 8.1 k/uL (1.3-7.7); Neutrophils % (A) 83 %; Platelet Count 214 k/uL (150-450); RDW 13.7 % (11.5-15.5); WBC 9.7 k/uL (3.8-10.6)
[2019-04-27 08:08] VITALS: BP 114/68; PULSE 79; TEMP 98
[2019-04-27] MEDS: ASPIRIN 325 MG TAB PO SCH (09:39)
[2019-04-27] MEDS: metFORMIN 500 MG TAB PO SCH (09:39)
--- NOTE | 2019-04-27 10:37 | P.DS ---
Providers Expected date of discharge: 04/27/19 Attending physician: Bebeto Mota Consults: 04/26/19 12:17 Consult Physician Routine Consulting Provider: Raulito Blake Consult Reason/Comments: post op medical management Do you want consulting provider notified?: Yes Primary care physician: Raulito Blake - Discharge Diagnosis(es) (1) Status post total left knee replacement Patient was admitted to the OR on 04/26/2019 to undergo a left total knee arthroplasty. He had failed conservative measures as an outpatient and desired to proceed with elective surgery after given informed consent. He underwent the above procedure which he tolerated well without complication. Postoperative hospital course has remained without complication. On day of discharge he is afebrile, vital signs stable, labs within acceptable ranges, tolerating by mouth meds and diet, voiding without difficulty, positive flatus, denies abdominal pain or calf pain, pain is controlled on oral pain medication and has no new complaints. Wound is benign, neurovascular status is intact, calf is soft and nontender, abdomen soft and nontender. Review of systems is negative for numbness, tingling, fever, chills, chest pain, shortness of breath, nausea, vomiting, dizziness, headaches, slurred speech or other Current Visit: Yes Status: Acute Priority: Medium Procedures: Left TKA Patient Condition at Discharge: Good Plan - Discharge Summary Discharge Rx Participant: Yes New Discharge Prescriptions: New Aspirin 325 mg PO BID #60 tab Docusate [Colace] 100 mg PO BID #60 capsule HYDROcodone/APAP 7.5-325MG [[place] 7.5-325] 1 - 2 tab PO Q6HR PRN #56 tab PRN Reason: Pain No Action Metoprolol Tartrate [Lopressor] 25 mg PO DAILY Atorvastatin [Lipitor] 20 mg PO W/SUPPER metFORMIN HCL 1,000 mg PO BID Pioglitazone [Actos] 30 mg PO DAILY Losartan Potassium [Cozaar] 25 mg PO DAILY Ibuprofen [Motrin Ib] 600 mg PO TID PRN PRN Reason: Pain Empagliflozin/Linagliptin [Glyxambi 25 mg-5 mg Tablet] 1 each PO DAILY Discharge Medication List Atorvastatin [Lipitor] 20 mg PO W/SUPPER 12/30/15 [History] Metoprolol Tartrate [Lopressor] 25 mg PO DAILY 12/30/15 [History] metFORMIN HCL 1,000 mg PO BID 12/30/15 [History] Empagliflozin/Linagliptin [Glyxambi 25 mg-5 mg Tablet] 1 each PO DAILY 04/18/19 [History] Ibuprofen [Motrin Ib] 600 mg PO TID PRN 04/18/19 [History] Losartan Potassium [Cozaar] 25 mg PO DAILY 04/18/19 [History] Pioglitazone [Actos] 30 mg PO DAILY 04/18/19 [History] Aspirin 325 mg PO BID #60 tab 04/27/19 [Rx] Docusate [Colace] 100 mg PO BID #60 capsule 04/27/19 [Rx] HYDROcodone/APAP 7.5-325MG [[place] 7.5-325] 1 - 2 tab PO Q6HR PRN #56 tab 04/27/19 [Rx] Follow up Appointment(s)/Referral(s): Raulito Blake MD [Primary Care Provider] - 1 Week Bebeto Mota MD [STAFF PHYSICIAN] - 05/05/19 1:00 pm Discharge Disposition: HOME WITH HOME HEALTH SERVICES
[2019-04-27] MEDS: HYDROcodone/APAP 5-325MG 1 EACH TAB PO PRN (11:28)
[2019-04-27 12:07] LABS: Glucose,Whole Blood 78 mg/dL (75-99)
--- NOTE | 2019-04-27 16:11 | P.CONS ---
History of Present Illness - Reason for Consult Consult date: 04/27/19 Requesting physician: Bebeto Mota - History of Present Illness Patient left before being seen. The impression and plan of care has been dictated as directed. : I performed a history and examination of this patient, discussed the same with the dictator. I agree with the dictator's note ,documented as a scribe. Any additional findings or plans will be noted. Past Medical History Past Medical History: Diabetes Mellitus, GERD/Reflux, Hyperlipidemia, Hypertension, Osteoarthritis (OA) Additional Past Medical History / Comment(s): HAS HX OF NEEDING ESOPHAGUS STRETCHED. 11/20/16 BACTERIA INFECTION RT EYE History of Any Multi-Drug Resistant Organisms: None Reported Past Surgical History: Back Surgery, Cholecystectomy, Orthopedic Surgery Additional Past Surgical History / Comment(s): LEFT KNEE SURGERY X3. EGD WITH DILATATION. COLONOSCOPY Past Anesthesia/Blood Transfusion Reactions: No Reported Reaction Past Psychological History: No Psychological Hx Reported Smoking Status: Never smoker Past Alcohol Use History: Occasional Past Drug Use History: None Reported - Past Family History Mother Family Medical History: No Reported History Medications and Allergies Home Medications Medication Instructions Recorded Confirmed Type Atorvastatin [Lipitor] 20 mg PO W/SUPPER 12/30/15 04/26/19 History Metoprolol Tartrate [Lopressor] 25 mg PO DAILY 12/30/15 04/26/19 History metFORMIN HCL 1,000 mg PO BID 12/30/15 04/26/19 History Empagliflozin/Linagliptin 1 each PO DAILY 04/18/19 04/26/19 History [Glyxambi 25 mg-5 mg Tablet] Ibuprofen [Motrin Ib] 600 mg PO TID PRN 04/18/19 04/26/19 History Losartan Potassium [Cozaar] 25 mg PO DAILY 04/18/19 04/26/19 History Pioglitazone [Actos] 30 mg PO DAILY 04/18/19 04/26/19 History Aspirin 325 mg PO BID #60 tab 04/27/19 Rx Docusate [Colace] 100 mg PO BID #60 capsule 04/27/19 Rx HYDROcodone/APAP 7.5-325MG [[place] 1 - 2 tab PO Q6HR PRN #56 tab 04/27/19 Rx 7.5-325] Allergies Allergy/AdvReac Type Severity Reaction Status Date / Time No Known Allergies Allergy Verified 04/26/19 12:23 Physical Exam Vitals: Vital Signs Temp Pulse Pulse Resp BP BP Pulse Ox 04/27/19 07:00 98 F 79 16 114/68 99 04/27/19 04:41 16 04/27/19 01:46 97.8 F 75 16 115/55 98 04/27/19 00:42 16 04/26/19 21:02 93 126/62 04/26/19 19:52 16 04/26/19 18:00 97 108/57 94 L 04/26/19 17:45 95 115/62 94 L 04/26/19 17:30 99 120/67 100 04/26/19 17:15 99 124/67 84 L 04/26/19 17:00 81 133/71 100 04/26/19 16:45 81 146/79 94 L 04/26/19 16:30 98.2 F 79 16 136/67 97 Intake and Output 04/27/19 04/27/19 04/27/19 06:59 14:59 22:59 Intake Total 696 Balance 696 Intake: Oral 696 Other: Voiding Method Toilet Results CBC & Chem 7: 04/27/19 07:28 Labs: Abnormal Lab Results - Last 24 Hours (Table) 04/26/19 04/26/19 04/27/19 Range/Units 17:01 20:19 07:10 Neutrophils # (1.3-7.7) k/uL POC Glucose (mg/dL) 127 H 169 H 154 H (75-99) mg/dL 04/27/19 Range/Units 07:28 Neutrophils # 8.1 H (1.3-7.7) k/uL POC Glucose (mg/dL) (75-99) mg/dL
[2019-04-28] MEDS ORDERED: MULTIVITAMINS, THERA 1 EACH TAB PO SCH (12:00)
== END 2019-04-27 12:09 | disposition home health service (06) ==
LOC: OR 10:37 → 4SSUR 15:53 → OR 04-27 12:09
PROVIDERS: ATTEND Orthopaedic Surgery Sports Medicine
DX: M17.0 Bilateral primary osteoarthritis of knee (principal); I10 Essential (primary) hypertension; E78.5 Hyperlipidemia, unspecified; E11.9 Type 2 diabetes mellitus without complications; K21.9 Gastro-esophageal reflux disease without esophagitis; Z79.84 Long term (current) use of oral hypoglycemic drugs; Z79.899 Other long term (current) drug therapy; Z90.49 Acquired absence of other specified parts of digestive tract; Z98.890 Other specified postprocedural states; Z88.8 Allergy status to other drugs, medicaments and biological substances; Z82.49 Family history of ischemic heart disease and other diseases of the circulatory system; Z83.3 Family history of diabetes mellitus
CPT/HCPCS: 97161; 64448; 76942; 85025; 88300; 73560; 27447; C1776; C1713; J2250; J0171; J1200; J1100; J0690 ×3; J2405; J2001; J3010; J1885; J1170 ×2; J2795 ×2; J2704; J0735

== ENCOUNTER → 2022-11-19 | Outpatient (CLI) | payer MEDICARE, OTHER ==
--- NOTE | 2022-11-19 16:38 | US ---
EXAMINATION TYPE: US venous doppler duplex LE LT DATE OF EXAM: 11/19/2022 4:26 PM COMPARISON: NONE CLINICAL INDICATION: Male, 67 years old with history of R22.42 SWELLING LT LOWER LEG; No hx of DVT. P atient is not taking blood thinners. Hx knee replacement in 2019. Swelling x 3 months. SIDE PERFORMED: Left TECHNIQUE: The lower extremity deep venous system is examined utilizing real time linear array sonog jaida with graded compression, doppler sonography and color-flow sonography. VESSELS IMAGED: Common Femoral Vein Deep Femoral Vein Greater Saphenous Vein * Femoral Vein Popliteal Vein Small Saphenous Vein * Proximal Calf Veins (* superficial vessels) Left Leg: No evidence of DVT. IMPRESSION: No ultrasound evidence for deep venous thrombosis of the left lower extremity.
== END | disposition home or self-care (01) ==
LOC: RADUSWWP 15:58
PROVIDERS: ATTEND Family Medicine
DX: R22.42 Localized swelling, mass and lump, left lower limb (principal); Z96.652 Presence of left artificial knee joint